=== PATIENT | male | born 2000 | race Caucasian/White ===

== ENCOUNTER 2024-05-29 16:13 | Emergency (ER) | payer OTHER ==
[2024-05-29 16:41] VITALS: BP 127/66; PULSE 67; RESP 18; TEMP 98.6; BMI 20.9
[2024-05-29] MEDS ORDERED: FLUORESCEIN NA 1 EA STRIP OD ONE (18:24)
[2024-05-29] MEDS ORDERED: TETRACAINE 0.5% OPHTH SOLN 2 ML BOTTLE ONE (18:24)
[2024-05-29] MEDS ORDERED: FLUORESCEIN NA 1 EA STRIP ONE (18:24)
[2024-05-29] MEDS ORDERED: TETRACAINE 0.5% OPHTH SOLN 2 ML BOTTLE OD ONE (18:24)
== END 2024-05-29 18:55 | disposition home or self-care (01) ==
LOC: JERFT 16:13
DX: H57.11 Ocular pain, right eye (principal); H57.89 Other specified disorders of eye and adnexa; Z77.098 Contact with and (suspected) exposure to other hazardous, chiefly nonmedicinal, chemicals
CPT/HCPCS: 99283-25

== ENCOUNTER 2024-06-06 08:48 | Emergency (ER) | payer SELFPAY ==
[2024-06-06 09:27] VITALS: RESP 18; BMI 20.9
[2024-06-06] MEDS: ACETAMINOPHEN 1000 MG/100 ML BAG IVPB ONE (10:16)
[2024-06-06] MEDS: DEXAMETHASONE SOD PHOSPHATE 10 MG/1 ML VIAL IVPUSH ONE (10:16)
[2024-06-06 10:34] LABS: BASO % 0.5 % (0-2.0); EOS % 0.1 % (0-4.5); HEMATOCRIT 44.1 % (35.4-49); HEMOGLOBIN 14.5 GM/dL (11.7-16.9); LYMPH % 7.6 % (8-40); MCH 30.7 pg (25.7-33.7); MCHC 32.9 g/dl (32.0-35.9); MEAN CELL VOLUME 93.5 fl (80-96); MEAN PLT VOLUME 7.4 fl (7.5-11.1); MONO % 8.6 % (3.8-10.2); NEUT % 83.2 % (42.8-82.8); PLATELET COUNT 275 10^3/uL (134-434); RBC 4.71 M/mm3 (4.00-5.60); RDW 13.3 % (11.9-15.9); WHITE BLOOD COUNT 14.4 K/mm3 (4.0-10.0)
[2024-06-06 10:59] LABS: POTASSIUM 4.1 mmol/L (3.5-5.1)
[2024-06-06 11:02] LABS: CALCIUM 9.6 mg/dL (8.5-10.1)
[2024-06-06 11:03] LABS: ALBUMIN 4.2 g/dl (3.4-5.0); BLOOD UREA NITROGEN 7.4 mg/dL (7-18)
[2024-06-06 11:06] LABS: CREATININE 0.8 mg/dL (0.55-1.3)
[2024-06-06 11:07] LABS: BILIRUBIN,TOTAL 0.6 mg/dL (0.2-1); TOT PROT 7.5 g/dl (6.4-8.2)
[2024-06-06 11:56] LABS: HIV INTERPRETATION NEGATIVE (NEGATIVE)
[2024-06-06] MEDS ORDERED: AMPICILLIN NA/SULBACTAM NA 3 GM/100 ML BAG IVPB ONE (12:44)
[2024-06-06] MEDS: AMPICILLIN NA/SULBACTAM NA 3 GM in SODIUM CHLORIDE 100 ML IVPB ONE (12:48)
[2024-06-06] MEDS: MAG HYDROX/ALH/SMC/DPHA/LIDO 240 ML MOUTHWASH MM STA (14:03)
[2024-06-06 16:55] VITALS: BP 128/63; PULSE 71; TEMP 98.4
[2024-06-06] MEDS ORDERED: MAG HYDROX/ALH/SMC/DPHA/LIDO 240 ML MOUTHWASH MM SCH (18:00)
== END 2024-06-06 16:55 | disposition short-term general hospital (02) ==
LOC: JER 08:48 → JERFT 08:48
PROC: 3E03329 Introduction of Other Anti-infective into Peripheral Vein, Percutaneous Approach (ICD-10-PCS; principal; 2024-06-06)
PROC: 3E033NZ Introduction of Analgesics, Hypnotics, Sedatives into Peripheral Vein, Percutaneous Approach (ICD-10-PCS; 2024-06-06)
PROC: 3E033GC Introduction of Other Therapeutic Substance into Peripheral Vein, Percutaneous Approach (ICD-10-PCS; 2024-06-06)
DX: J36 Peritonsillar abscess (principal); R42 Dizziness and giddiness; R13.10 Dysphagia, unspecified; Z20.822 Contact with and (suspected) exposure to COVID-19
CPT/HCPCS: 0241U-QW; 36415; 70491-TC; 80053; 85025; 86803; 87389; 87651; 99285-25; J0131; J1100; Q9967

== ENCOUNTER 2024-09-30 09:59 | Emergency (ER) | payer OTHER ==
[2024-09-30 10:14] VITALS: BP 120/74; PULSE 83; RESP 18; TEMP 98.4; BMI 20.9
[2024-09-30] MEDS ORDERED: ONDANSETRON 4 MG/2 ML VIAL ONE (12:19)
[2024-09-30] MEDS ORDERED: ACETAMINOPHEN INJECTION 100 ML ONE (12:19)
[2024-09-30] MEDS ORDERED: MAG HYDROX/AL HYDROX/SIMETH 30 ML UNIT-DOSE CUP ONE (12:19)
[2024-09-30 12:20] LABS: HEMATOCRIT 49.1 % (35.4-49); HEMOGLOBIN 16.5 GM/dL (11.7-16.9); MCH 30.6 pg (25.7-33.7); MCHC 33.6 g/dl (32.0-35.9); MEAN CELL VOLUME 91.1 fl (80-96); MEAN PLT VOLUME 7.3 fl (7.5-11.1); PLATELET COUNT 278 10^3/uL (134-434); RBC 5.39 M/mm3 (4.00-5.60); RDW 13.1 % (11.9-15.9); WHITE BLOOD COUNT 12.8 K/mm3 (4.0-10.0)
[2024-09-30] MEDS ORDERED: FAMOTIDINE 20 MG/50 ML IVPB 20 MG/50 ML MG IVPB ONE (12:23)
[2024-09-30] MEDS: ACETAMINOPHEN 1000 MG/100 ML BAG IVPB ONE (12:29)
[2024-09-30] MEDS: ONDANSETRON 4 MG/2 ML VIAL IVPUSH ONE (12:29)
[2024-09-30] MEDS: SODIUM CHLORIDE 0.9% 500 ML INFUS.BAG IV ONE (12:29)
[2024-09-30] MEDS: MAG HYDROX/AL HYDROX/SIMETH 30 ML UNIT-DOSE CUP PO ONE (12:29)
[2024-09-30] MEDS: FAMOTIDINE 20 MG/50 ML IVPB 20 MG/50 ML MG IVPB ONE (12:29)
[2024-09-30 12:51] LABS: THROAT:GRP A STREP NOT DETECTED (NOTDETECTED)
[2024-09-30 13:03] LABS: ANISOCYTOSIS 0; MACROCYTOSIS 0
[2024-09-30 13:28] LABS: ALBUMIN 4.9 g/dl (3.4-5.0); BLOOD UREA NITROGEN 19.2 mg/dL (7-18); CALCIUM 9.6 mg/dL (8.5-10.1); POTASSIUM 4.7 mmol/L (3.5-5.1)
[2024-09-30 13:29] LABS: CREATININE 0.8 mg/dL (0.55-1.3); PHOSPHOROUS 3.4 mg/dL (2.5-4.9)
[2024-09-30 13:31] LABS: BILIRUBIN,TOTAL 0.5 mg/dL (0.2-1); TOT PROT 8.4 g/dl (6.4-8.2)
== END 2024-09-30 15:00 | disposition home or self-care (01) ==
LOC: JER 09:59
PROC: 3E033GC Introduction of Other Therapeutic Substance into Peripheral Vein, Percutaneous Approach (ICD-10-PCS; principal; 2024-09-30)
PROC: 3E033NZ Introduction of Analgesics, Hypnotics, Sedatives into Peripheral Vein, Percutaneous Approach (ICD-10-PCS; 2024-09-30)
PROC: 3E033GC Introduction of Other Therapeutic Substance into Peripheral Vein, Percutaneous Approach (ICD-10-PCS; 2024-09-30)
DX: R10.84 Generalized abdominal pain (principal); R11.2 Nausea with vomiting, unspecified; R19.7 Diarrhea, unspecified; Z20.822 Contact with and (suspected) exposure to COVID-19
CPT/HCPCS: 0241U-QW; 36415; 80053; 83690; 83735; 84100; 85025; 87651; 96365; 96375; 99284-25; J0131

== ENCOUNTER 2025-04-06 15:38 | Emergency (ER) | payer OTHER ==
[2025-04-06 15:43] VITALS: BP 141/85; PULSE 64; RESP 19; TEMP 98.1; BMI 21.9
== END 2025-04-06 16:56 | disposition home or self-care (01) ==
LOC: JER 15:38
DX: R51.9 Headache, unspecified (principal)
CPT/HCPCS: 70450-TC; 99284-25